=== PATIENT | male | born 1965 | race Caucasian/White ===

== ENCOUNTER 2017-12-31 15:25 | Emergency (ER) | payer BC ==
[2017-12-31] MEDS ORDERED: Lidocaine 2% Jelly 10 ML Urojet ONE (15:59)
[2017-12-31] MEDS ORDERED: Lidocaine 2% Viscous Solution 15 ML Cup ONE ×2 (15:59→17:02)
[2017-12-31] MEDS ORDERED: Ciprofloxacin 0.3% Ophth Soln 2.5 ML Bottle EARLF ONE (16:45)
--- NOTE | 2017-12-31 16:47 | EDM.PDOC ---
ED HPI GENERAL MEDICAL PROBLEM - General Chief Complaint: ENT Problem Stated Complaint: BUG IN LEFT EAR Time Seen by Provider: 12/31/17 15:45 Source of Information: Reports: Patient History Limitations: Reports: No Limitations - History of Present Illness INITIAL COMMENTS - FREE TEXT/NARRATIVE: Patient is a 52-year-old male presents ED complaining of a bug in his left ear. States he was putting on headphones and a bug flew in his ear. He suspects is a moth. This just happened prior to arrival. He feels it moving around at this point. No pain present. - Related Data Allergies Allergy/AdvReac Type Severity Reaction Status Date / Time No Known Allergies Allergy Verified 12/31/17 15:34 Home Meds: Home Meds . [No Known Home Meds] 12/31/17 [History] Past Medical History - Past Health History Medical/Surgical History: Denies Medical/Surgical History Social & Family History - Tobacco Use Smoking Status *Q: Never Smoker - Recreational Drug Use Recreational Drug Use: No ED ROS ENT - Review of Systems Review Of Systems: ROS reveals no pertinent complaints other than HPI. ED EXAM, ENT - Physical Exam Exam: See Below Exam Limited By: No Limitations General Appearance: Alert, WD/WN, No Apparent Distress Ears: Normal External Exam, Normal Canal, Hearing Grossly Normal, Other (On examination patient has a moth in the this last within the ear canal.) Nose: Normal Inspection Neck: Normal Inspection, Supple Respiratory/Chest: No Respiratory Distress, No Accessory Muscle Use Neurological: Alert, Oriented, CN II-XII Intact, Normal Cognition, No Motor/ Sensory Deficits Psychiatric: Normal Affect, Normal Mood Skin: Warm, Dry Course - Vital Signs Last Recorded V/S: Last Vital Signs Temp 97.8 F 12/31/17 15:34 Pulse 91 12/31/17 15:34 Resp 18 12/31/17 15:34 BP 138/88 12/31/17 15:34 Pulse Ox 97 12/31/17 15:34 - Orders/Labs/Meds Meds: Medications Discontinued Medications Generic Name Dose Route Start Last Admin Trade Name Freq PRN Reason Stop Dose Admin Ciprofloxacin 1 ml 12/31/17 16:45 12/31/17 16:58 Ciloxan 0.3% Ophth Soln EARLF 12/31/17 16:46 4 drop ONETIME ONE Administration Lidocaine HCl Confirm 12/31/17 15:59 12/31/17 17:02 Xylocaine 2% Viscous Administered 12/31/17 16:00 Not Given Dose 15 ml .ROUTE .STK-MED ONE Lidocaine HCl Confirm 12/31/17 15:59 12/31/17 17:02 Xylocaine 2% Jelly Administered 12/31/17 16:00 Not Given Dose 10 ml .ROUTE .STK-MED ONE Lidocaine HCl 15 ml 12/31/17 17:02 12/31/17 17:02 Xylocaine 2% Viscous .XX 12/31/17 17:03 15 ml ONETIME ONE Administration - Re-Assessments/Exams Free Text/Narrative Re-Assessment/Exam: Utilized proparacaine drops and also 2% viscous lidocaine. After multiple attempts the moth was removed. All fragments of the bug left were removed as well. There is slight irritation noted to the ear canal and also tympanic membrane. Tympanic membrane remains intact. No bleeding present. During Removal of the bug patient did become slightly dizzy with irrigating his ear canal. Symptoms are improving with laying flat. I have ordered Cipro otic drops to be placed to the left ear. Discharge instructions as documented. Departure - Departure Time of Disposition: 16:46 Disposition: Home, Self-Care 01 Condition: Good Clinical Impression: Ear foreign body Qualifiers: Encounter type: initial encounter Laterality: left Qualified Code(s): T16.2XXA - Foreign body in left ear, initial encounter - Discharge Information Instructions: Ear Foreign Body Referrals: Geraldo Sosa MD [Primary Care Provider] - Forms: ED Department Discharge Additional Instructions: Apply 4 drops to the ear twice a day for the next 7 days. Utilize Tylenol and ibuprofen in alternating fashion for pain. May follow up with PCP on Friday and experiencing worsening pain. Tympanic membrane was intact. Ear canal was slightly irritated due to the removal of the moth. Suspect this will improve over the next few days. Please return to the ED if you develop any new or worsening symptoms.
== END 2017-12-31 17:00 | disposition home or self-care (01) ==
LOC: JD.ED 15:25
DX: T16.2XXA Foreign body in left ear, initial encounter (principal)
CPT/HCPCS: 69200; 99283; A9270